=== PATIENT | male | born 1970 | race Caucasian/White ===

== ENCOUNTER → 2019-11-05 | Outpatient (CLI) | payer OTHER ==
--- NOTE | 2019-11-05 12:20 | KCIC ---
LUMBAR SPINE WO CONTRAST History: Bilateral leg radiculopathy. Technique: Multiplanar, multi sequential MR imaging was performed of the lumbar spine. Comparison: None Findings: Normal vertebral body height and alignment. No fracture. Degenerative endplate changes L4-L5 and L5-S1. No pathologic marrow placing process. Conus terminates at the normal location. No evidence of nerve root clumping. L1-L2: Small posterior disc bulge. No canal or neuroforaminal narrowing. L2-L3: No canal or neuroforaminal narrowing. Mild facet arthropathy. L3-L4: Small central disc protrusion. Mild to moderate facet arthropathy. No canal or neuroforaminal narrowing. L4-L5: Postoperative changes laminectomy. Broad-based posterior disc bulge. Moderate to advanced facet arthropathy. Bilateral subarticular recess narrowing. No canal narrowing. Mild bilateral neural foraminal narrowing. L5-S1: Small posterior disc bulge. Moderate facet arthropathy. No canal narrowing. Mild to moderate bilateral neural foraminal narrowing. Impression: 1. Multilevel lumbar spondylosis most prominent L4-L5 and L5-S1. Electronically signed by: Christ Thomas DO (11/05/2019 12:17 PM) [id number]
== END | disposition home or self-care (01) ==
LOC: KCIC MRI 09:32
PROVIDERS: ATTEND Family Medicine
DX: M48.07 Spinal stenosis, lumbosacral region (principal); M47.817 Spondylosis without myelopathy or radiculopathy, lumbosacral region; M12.88 Other specific arthropathies, not elsewhere classified, other specified site; M51.26 Other intervertebral disc displacement, lumbar region; Z98.890 Other specified postprocedural states
CPT/HCPCS: 72148